=== PATIENT | male | born 1950 | race Caucasian/White ===

== ENCOUNTER 2020-03-27 11:18 | Inpatient (IN) ==
[2020-03-27] MEDS ORDERED: Famotidine 20 MG/2 ML VIAL IVP ONE (11:42)
[2020-03-27] MEDS ORDERED: Acetaminophen IV 1,000 MG/100 ML INFUS..BTL IVPB ONE (11:43)
[2020-03-27] MEDS ORDERED: *HR* FentaNYL (PF) 100 MCG/2 ML VIAL ONE (11:48)
[2020-03-27] MEDS ORDERED: Lidocaine -MPF 2% 2 ML VIAL ONE (11:48)
[2020-03-27] MEDS ORDERED: Lidocaine -MPF 4% 5 ML AMPUL ONE (11:48)
[2020-03-27] MEDS ORDERED: Dexamethasone 4 MG/ML VIAL ONE (11:48)
[2020-03-27] MEDS ORDERED: *HR* Midazolam HCl 2 MG/2 ML VIAL ONE (11:48)
[2020-03-27] MEDS ORDERED: Ondansetron 4 MG/2 ML VIAL ONE (11:48)
[2020-03-27] MEDS ORDERED: *HR* Succinylcholine 200 MG/10 ML VIAL IVP ONE (11:48)
[2020-03-27] MEDS ORDERED: *HR* Propofol 200 MG/20 ML VIAL IVP ONE (11:48)
[2020-03-27] MEDS ORDERED: CeFAZolin Syr 2,000MG/20 ML 2,000 MG/20 ML SYRINGE IVPB ONE (11:50)
[2020-03-27] MEDS ORDERED: Ringers Solution, Lactated 1,000 ML IVC SCH ×2 (12:00→15:28)
[2020-03-27] MEDS ORDERED: Vancomycin 1,000 MG VIAL ONE (12:19)
[2020-03-27] MEDS ORDERED: Ethanol\\Acetic Acid\\Na Ace\\Ben 1,000 ML IRRIG.SOLN IR ONE (12:19)
[2020-03-27] MEDS ORDERED: Ropivacaine/PF 0.5% 30 ML VIAL ONE (12:25)
[2020-03-27] MEDS ORDERED: *HR* PHENYLEPHRINE 1,000 MCG/10 ML SYRINGE IVP ONE ×2 (13:05→13:42)
[2020-03-27] MEDS ORDERED: Povidone-Iodine 45 ML, Sodium Chloride IRRigation 1,000 ML IR ONE (13:25)
[2020-03-27 14:38] LABS: Hematocrit 36.5 % (37.5-50.1); Hemoglobin 11.3 g/dL (12.9-16.9)
[2020-03-27] MEDS ORDERED: Naloxone 0.4 MG/ML INJ IVP PRN (15:28)
[2020-03-27] MEDS ORDERED: MOM Conc 10 ML UD.LIQ PO PRN (15:28)
[2020-03-27] MEDS ORDERED: Sennosides 8.6 MG TABLET PO PRN (15:28)
[2020-03-27] MEDS ORDERED: *HR* Dextrose 50 % in Water (Vial) 50 ML VIAL IVP PRN (15:28)
[2020-03-27] MEDS ORDERED: Dextrose Gel 15 GM/37.5 ML TUBE PO PRN ×2 (15:28)
[2020-03-27] MEDS ORDERED: D5% in Water 1,000 ML IVC PRN (15:28)
[2020-03-27] MEDS ORDERED: Ondansetron 4 MG/2 ML VIAL IVP PRN ×2 (15:28)
[2020-03-27] MEDS ORDERED: *HR* OxyCODONE Immed Rel 5 MG TABLET PO PRN (15:28)
[2020-03-27] MEDS ORDERED: *HR* OxyCODONE/APAP 5/325 TABLET PO PRN (15:28)
[2020-03-27] MEDS: Insulin LISPRO 300 UNITS/3 ML VIAL SQ SCH (16:14)
[2020-03-27] MEDS: *HR* Metformin 850 MG TABLET PO SCH (17:58)
[2020-03-27] MEDS: *HR* Enoxaparin 30 MG/0.3 ML SYRINGE SQ SCH (17:59)
[2020-03-27] MEDS ORDERED: *HR* Enoxaparin 30 MG/0.3 ML SYRINGE SQ SCH (18:00)
[2020-03-27] MEDS ORDERED: Insulin LISPRO 300 UNITS/3 ML VIAL SQ SCH (21:00)
[2020-03-27] MEDS: CeFAZolin 2 GM/120 ML BAG IVPB SCH (21:17)
[2020-03-28] MEDS: CeFAZolin 2 GM/120 ML BAG IVPB SCH (06:07)
[2020-03-28] MEDS: *HR* OxyCODONE Immed Rel 5 MG TABLET PO PRN ×2 (06:38→11:20)
[2020-03-28] MEDS: *HR* Enoxaparin 30 MG/0.3 ML SYRINGE SQ SCH (06:38)
[2020-03-28 07:38] LABS: Hematocrit 37.7 % (37.5-50.1)
[2020-03-28 07:44] LABS: BUN/Creatinine Ratio 24 (6-26); Blood Urea Nitrogen 19 mg/dL (8-23); Calcium 9.3 mg/dL (8.6-10.3); Carbon Dioxide 27 mEq/L (23-29); Chloride 101 mEq/L (98-107); Glucose 222 mg/dL (70-105); Osmolality,Calculated 289 (280-300); Potassium 4.5 mEq/L (3.5-5.1); Sodium 135 mEq/L (136-145); eGFR For African Americans > 60 (> 60); eGFR For Non-African Americans > 60 (> 60)
[2020-03-28] MEDS ORDERED: Multivit/Ca/Min/Fe/FA 1 TAB TABLET PO SCH (09:00)
[2020-03-28] MEDS ORDERED: lisinopriL 5 MG TABLET PO SCH (09:00)
[2020-03-28] MEDS ORDERED: Finasteride 5 MG TABLET PO SCH (09:00)
[2020-03-28] MEDS ORDERED: *HR* SitaGLIPtin 25 MG TABLET PO SCH (09:00)
[2020-03-28] MEDS: *HR* Metformin 850 MG TABLET PO SCH (10:16)
[2020-03-28] MEDS: Insulin LISPRO 300 UNITS/3 ML VIAL SQ SCH (10:19)
[2020-03-28 10:44] VITALS: BP 130/76
== END 2020-03-28 12:35 | disposition home health service (06) | DRG 483 ==
LOC: SAMDAY 11:18 → 3NENU 14:53
PROVIDERS: ADMIT Orthopaedic Surgery; ATTEND Orthopaedic Surgery